=== PATIENT | female | born 1950 | race African-American/Black ===

== ENCOUNTER 2018-07-05 08:40 | Observation (INO) | payer OTHER ==
--- NOTE | 2018-07-05 09:25 | ER ---
Nurse's Notes [facility] Name: Soha Aguilar Age: 67 yrs Sex: Female : 1950 Arrival Date: 07/05/2018 Time: 08:42 Bed 16 Private MD: Diagnosis: Headache;Other chest pain;Ataxia, unspecified Presentation: 07/05 08:53 Presenting complaint: Friend states: Frontal headache, nausea, and dizziness x 1 month, hb worse over the last week. Recently completed abx for URI. Transition of care: patient was not received from another setting of care. 08:53 Method Of Arrival: Wheelchair hb 08:55 Onset of symptoms is unknown. Risk Assessment: Do you want to hurt yourself or someone hb else? Patient reports no desire to harm self or others. Care prior to arrival: None. 08:55 Acuity: CARMITA 3 hb 12:30 Initial Sepsis Screen: Does the patient meet any 2 criteria? No. Patient's initial sg sepsis screen is negative. Does the patient have a suspected source of infection? No. Patient's initial sepsis screen is negative. Triage Assessment: 09:00 Headache History: The patient has had previous headaches and this one is similar to sg previous episodes. General: Appears in no apparent distress. well groomed, well developed, well nourished. Pain: Pain currently is 10 out of 10 on a pain scale. at worst was 10 out of 10 on a pain scale. Also complains of. Historical: - Allergies: 08:55 Advil; hb 08:55 Benadryl; hb 08:55 FLU VACCINE; hb - PMHx: 08:55 Cancer, Breast; hb - PSHx: 08:55 Mastectomy, Left; hb - Immunization history:: Adult Immunizations up to date. - Social history:: Smoking status: Patient/guardian denies using tobacco. - Ebola Screening: : No symptoms or risks identified at this time. - Family history:: not pertinent. Screenin:54 Abuse screen: Denies threats or abuse. Denies injuries from another. Nutritional sg screening: No deficits noted. Tuberculosis screening: No symptoms or risk factors identified. Never had TB. Fall Risk None identified. Assessment: 09:00 General: Appears in no apparent distress. well groomed, well developed, well nourished, sg Behavior is calm, cooperative, appropriate for age, quiet. Neuro: Level of Consciousness is awake, alert, obeys commands, Oriented to person, place, time, situation, Materials Manager are equal bilaterally Moves all extremities. Full function Gait is steady, Speech is normal, Facial symmetry appears normal, Pupils are PERRLA, Reports dizziness, worsens when standing up headache in entire frontal area. Cardiovascular: Patient's skin is warm and dry. Respiratory: Airway is patent Respiratory effort is even, unlabored, Respiratory pattern is regular, symmetrical. GI: No signs and/or symptoms were reported involving the gastrointestinal system. : No signs and/or symptoms were reported regarding the genitourinary system. Derm: Skin is intact, is healthy with good turgor, Skin is dry, Skin is normal, Skin temperature is warm. 09:45 Reassessment: pt remains off the unit in Radiology at this time. sg 11:00 Reassessment: Patient appears in no apparent distress at this time. Patient and/or sg family updated on plan of care and expected duration. Pain level reassessed. Patient is alert, oriented x 3, equal unlabored respirations, skin warm/dry/pink. Patient states feeling better. 12:00 Reassessment: Patient appears in no apparent distress at this time. Patient and/or sg family updated on plan of care and expected duration. Pain level reassessed. pt family remains at bedside at this time. Vital Signs: 08:55 BP 171 / 89; Pulse 77; Resp 16; Temp 97.8; Pulse Ox 98% on R/A; Pain 5/10; hb 10:55 BP 170 / 80; Pulse 78; Resp 16; Pulse Ox 99% on R/A; Pain 3/10; sg 13:26 BP 121 / 56; Pulse 60; Resp 17; Pulse Ox 98% on R/A; Pain 0/10; sg NIH Stroke Scale Scores: 09:17 NIHSS Score: 0 arielle ED Course: 08:42 Patient arrived in ED. as 08:50 Miguel Hillman MD is Attending Physician. arielle 08:55 Triage completed. hb 08:55 Arm band placed on. hb 09:00 Patient has correct armband on for positive identification. Call light in reach. Side sg rails up X2. Pulse ox on. NIBP on. 09:12 Fabiano Deras RN is Primary Nurse. sg 09:23 Chapincito Choudhury DO is Hospitalizing Provider. arielle 09:29 X-ray completed. Portable x-ray completed in exam room. Patient tolerated procedure ml well. 09:31 XRAY Chest (1 view) In Process Unspecified. EDMS 09:32 CT completed. Patient tolerated procedure well. Patient moved to CT via wheelchair. [email or web address] Patient moved to MRI Patient moved back from CT. 09:33 CT Head Brain wo Cont In Process Unspecified. EDMS 09:49 Brain Wo Cont In Process Unspecified. EDMS 10:10 US Carotid Artery Bilateral In Process Unspecified. EDMS 10:37 EKG done, by it technical specialist. reviewed by Miguel Hillman MD. sm3 10:42 Missed attempt(s): 22 gauge in right hand. Bleeding controlled, band aid applied, dh3 catheter tip intact. 10:44 Initial lab(s) drawn, by il, sent to lab. Inserted saline lock: 20 gauge in right dh3 antecubital area, using aseptic technique. Blood collected. 12:56 No provider procedures requiring assistance completed. Patient admitted, IV remains in sg place. intact, No redness/swelling at site. Administered Medications: 10:10 Drug: NS 0.9% 500 ml Route: IV; Rate: bolus; Site: right antecubital; sg 11:40 Follow up: Response: No adverse reaction; IV Status: Completed infusion; IV Intake: sg 500ml 10:10 Drug: NS 0.9% 1000 ml Route: IV; Rate: 125 ml/hr; Site: right antecubital; sg 13:49 Follow up: IV Status: Infusion continued upon admission sg 12:20 Drug: Pepcid 20 mg Route: IVP; Site: right antecubital; sg 13:22 Follow up: Response: No adverse reaction sg 12:23 Not Given (Patient Refused; pt and pt family report an allergy to aspirin): Aspirin sg Chewable Tablet 324 mg PO once; 81 mg tablets x 4 Intake: 11:40 IV: 500ml; Total: 500ml. sg Outcome: 09:23 Decision to Hospitalize by Provider. arielle 13:45 Admitted to Med/surg accompanied by tech, family with patient, via wheelchair, room sg 204, on monitor, with chart, Report called to Bernardo ESQUEDA 13:45 Condition: stable 13:45 Instructed on the need for admit, safety practices, Demonstrated understanding of instructions. 13:49 Patient left the ED. NIH Stroke Scale - NIH Stroke Score Date: 07/05/2018 Time: 09:17 Total Score = 0 1a. Level of Consciousness (LOC) - 0(Alert) 1b. Level of Consciousness (LOC) (Year \T\ Age) - 0(Both) 1c. LOC Commands (Open \T\ Closes Eyes/Publisher Assistant) - 0(Both) 2. Best Gaze (Lateral Gaze Paresis) - 0(Normal) 3. Visual Field Loss - 0(No visual loss) 4. Facial Palsy - 0(Normal) 5a. Left Arm: Motor (10-second hold) - 0(No drift) 5b. Right Arm: Motor (10-second hold) - 0(No drift) 6a. Left Leg: Motor (5-second hold - always test supine) - 0(No drift) 6b. Right Leg: Motor (5-second hold - always test supine) - 0(No drift) 7. Limb Ataxia (finger/nose \T\ heel/dolan - test with eyes open) - 0(Absent) 8. Sensory Loss (pinprick arms/legs/face) - 0(Normal) 9. Best Language: Aphasia (description/naming/reading) - 0(No aphasia) 10. Dysarthria (speech clarity - read or repeat words) - 0(Normal) 11. Extinction and Inattention (visual/tactile/auditory/spatial/personal) - 0(No abnormality) Initials: arielle Signatures: Dispatcher [employer] Fabiano Ro RN RN sg Anderson, Corey, MD MD cha Martinez, Jana Lutz Heather, RN RN Vannesa Anderson [facility] Tiny Hsu 3 Solange [email or web address] Corrections: (The following items were deleted from the chart) 10:49 10:44 Inserted saline lock: 22 gauge in right antecubital area, using aseptic 3 technique. Blood collected. [facility]
--- NOTE | 2018-07-05 09:25 | EDPHYS ---
Physician Documentation [facility] Name: Soha Aguilar Age: 67 yrs Sex: Female : 1950 Arrival Date: 07/05/2018 Time: 08:42 Bed 16 Private MD: ED Physician Miguel Hillman HPI: 07/05 09:16 This 67 yrs old Black Female presents to ER via Wheelchair with complaints of Headache, arielle Dizziness. 09:16 The patient complains of pain to the forehead, right religion, left religion, left side of arielle forehead and right side of forehead. The patient describes the headache as a pressure. Onset: The symptoms/episode began/occurred 2 month(s) ago. Associated signs and symptoms: Pertinent positives: weakness. Severity of symptoms: At its worst the pain was mild, moderate, in the emergency department the pain is unchanged. 09:17 The patient or guardian reports chest pain that is located primarily in the anterior arielle chest wall, bilaterally. Onset: 2 month(s) ago. The patient's problem is reported as difficulty walking, weakness, walks to the left. Onset: The symptoms/episode began/occurred 2 month(s) ago. Historical: - Allergies: 08:55 Advil; hb 08:55 Benadryl; hb 08:55 FLU VACCINE; hb - PMHx: 08:55 Cancer, Breast; hb - PSHx: 08:55 Mastectomy, Left; hb - Immunization history:: Adult Immunizations up to date. - Social history:: Smoking status: Patient/guardian denies using tobacco. - Ebola Screening: : No symptoms or risks identified at this time. - Family history:: not pertinent. ROS: 09:17 Constitutional: Negative for fever, chills, and weight loss, Eyes: Negative for injury, arielle pain, redness, and discharge, ENT: Negative for injury, pain, and discharge, Neck: Negative for injury, pain, and swelling, Respiratory: Negative for shortness of breath, cough, wheezing, and pleuritic chest pain, Abdomen/GI: Negative for abdominal pain, nausea, vomiting, diarrhea, and constipation, Back: Negative for injury and pain, : Negative for injury, bleeding, discharge, and swelling, Skin: Negative for injury, rash, and discoloration, Psych: Negative for depression, anxiety, suicide ideation, homicidal ideation, and hallucinations, Allergy/Immunology: Negative for hives, rash, and allergies, Endocrine: Negative for neck swelling, polydipsia, polyuria, polyphagia, and marked weight changes, Hematologic/Lymphatic: Negative for swollen nodes, abnormal bleeding, and unusual bruising. 09:17 Cardiovascular: Positive for chest pain. 09:17 MS/extremity: Positive for pain, of the right arm. 09:17 Neuro: Positive for gait disturbance, headache, weakness, walks to the left. Exam: 09:17 Constitutional: This is a well developed, well nourished patient who is awake, alert, arielle and in no acute distress. Head/Face: Normocephalic, atraumatic. Eyes: Pupils equal round and reactive to light, extra-ocular motions intact. Lids and lashes normal. Conjunctiva and sclera are non-icteric and not injected. Cornea within normal limits. Periorbital areas with no swelling, redness, or edema. ENT: Nares patent. No nasal discharge, no septal abnormalities noted. Tympanic membranes are normal and external auditory canals are clear. Oropharynx with no redness, swelling, or masses, exudates, or evidence of obstruction, uvula midline. Mucous membranes moist. Neck: Trachea midline, no thyromegaly or masses palpated, and no cervical lymphadenopathy. Supple, full range of motion without nuchal rigidity, or vertebral point tenderness. No Meningismus. Chest/axilla: Normal chest wall appearance and motion. Nontender with no deformity. No lesions are appreciated. Cardiovascular: Regular rate and rhythm with a normal S1 and S2. No gallops, murmurs, or rubs. Normal PMI, no JVD. No pulse deficits. Respiratory: Lungs have equal breath sounds bilaterally, clear to auscultation and percussion. No rales, rhonchi or wheezes noted. No increased work of breathing, no retractions or nasal flaring. Abdomen/GI: Soft, non-tender, with normal bowel sounds. No distension or tympany. No guarding or rebound. No evidence of tenderness throughout. Back: No spinal tenderness. No costovertebral tenderness. Full range of motion. Female : Normal external genitalia. Skin: Warm, dry with normal turgor. Normal color with no rashes, no lesions, and no evidence of cellulitis. MS/ Extremity: Pulses equal, no cyanosis. Neurovascular intact. Full, normal range of motion. Neuro: Awake and alert, GCS 15, oriented to person, place, time, and situation. Cranial nerves II-XII grossly intact. Motor strength 5/5 in all extremities. Sensory grossly intact. Cerebellar exam normal. Normal gait. Psych: Awake, alert, with orientation to person, place and time. Behavior, mood, and affect are within normal limits. 09:20 Radiologist reports: see report [facility] Vital Signs: 08:55 BP 171 / 89; Pulse 77; Resp 16; Temp 97.8; Pulse Ox 98% on R/A; Pain 5/10; hb 10:55 BP 170 / 80; Pulse 78; Resp 16; Pulse Ox 99% on R/A; Pain 3/10; sg 13:26 BP 121 / 56; Pulse 60; Resp 17; Pulse Ox 98% on R/A; Pain 0/10; sg NIH Stroke Scale Scores: 09:17 NIHSS Score: 0 arielle MDM: 08:50 Patient medically screened. [facility] 09:21 Data reviewed: vital signs, nurses notes, lab test result(s), EKG, radiologic studies, [facility] CT scan, doppler, MRI, plain films. 03 09:15 Order name: Basic Metabolic Panel; Complete Time: 12:59 [facility] 07/05 09:15 Order name: CBC with Diff; Complete Time: 11:46 [facility] 07/05 09:15 Order name: LFT's; Complete Time: 12:59 [facility] 07/05 09:15 Order name: Magnesium; Complete Time: 12:59 [facility] 07/05 09:15 Order name: NT PRO-BNP; Complete Time: 12:59 [facility] 07/05 09:15 Order name: PT-INR; Complete Time: 11:46 [facility] 07/05 09:15 Order name: Troponin (emerg Dept Use Only); Complete Time: 12:59 [facility] 07/05 09:15 Order name: XRAY Chest (1 view); Complete Time: 11:46 [facility] 07/05 09:15 Order name: Lipase; Complete Time: 12:59 [facility] 07/05 09:15 Order name: CT Head Brain wo Cont; Complete Time: 11:46 [facility] 07/05 09:15 Order name: US Carotid Artery Bilateral; Complete Time: 11:46 [facility] 07/05 09:15 Order name: Urine Culture [facility] 07/05 09:49 Order name: Brain Wo Cont; Complete Time: 11:46 EDMS 07/05 09:15 Order name: EKG; Complete Time: 09:16 [facility] 07/05 09:15 Order name: Cardiac monitoring; Complete Time: 09:45 [facility] 07/05 09:15 Order name: EKG - Nurse/Tech; Complete Time: 10:49 [facility] 07/05 09:15 Order name: IV Saline Lock; Complete Time: 09:45 [facility] 07/05 09:15 Order name: Labs collected and sent; Complete Time: 09:45 [facility] 07/05 09:15 Order name: O2 Per Protocol; Complete Time: 09:45 [facility] 07/05 09:15 Order name: O2 Sat Monitoring; Complete Time: 09:45 [facility] 07/05 11:00 Order name: Labs - recollect needed; Complete Time: 12:08 07/05 13:40 Order name: Diet Heart Healthy; Complete Time: 13:40 sg Administered Medications: 10:10 Drug: NS 0.9% 500 ml Route: IV; Rate: bolus; Site: right antecubital; sg 11:40 Follow up: Response: No adverse reaction; IV Status: Completed infusion; IV Intake: sg 500ml 10:10 Drug: NS 0.9% 1000 ml Route: IV; Rate: 125 ml/hr; Site: right antecubital; sg 13:49 Follow up: IV Status: Infusion continued upon admission sg 12:20 Drug: Pepcid 20 mg Route: IVP; Site: right antecubital; sg 13:22 Follow up: Response: No adverse reaction sg 12:23 Not Given (Patient Refused; pt and pt family report an allergy to aspirin): Aspirin sg Chewable Tablet 324 mg PO once; 81 mg tablets x 4 Disposition: 07/05/18 09:23 Hospitalization ordered by Chapincito Choudhury for Observation. Preliminary diagnosis are Headache, Other chest pain, Ataxia, unspecified. - Bed requested for Telemetry/MedSurg (observation). - Status is Observation. sg - Condition is Stable. - Problem is new. - Symptoms have improved. UTI on Admission? No NIH Stroke Scale - NIH Stroke Score Date: 07/05/2018 Time: 09:17 Total Score = 0 1a. Level of Consciousness (LOC) - 0(Alert) 1b. Level of Consciousness (LOC) (Year \T\ Age) - 0(Both) 1c. LOC Commands (Open \T\ Closes Eyes/Director Of Grants) - 0(Both) 2. Best Gaze (Lateral Gaze Paresis) - 0(Normal) 3. Visual Field Loss - 0(No visual loss) 4. Facial Palsy - 0(Normal) 5a. Left Arm: Motor (10-second hold) - 0(No drift) 5b. Right Arm: Motor (10-second hold) - 0(No drift) 6a. Left Leg: Motor (5-second hold - always test supine) - 0(No drift) 6b. Right Leg: Motor (5-second hold - always test supine) - 0(No drift) 7. Limb Ataxia (finger/nose \T\ heel/dolan - test with eyes open) - 0(Absent) 8. Sensory Loss (pinprick arms/legs/face) - 0(Normal) 9. Best Language: Aphasia (description/naming/reading) - 0(No aphasia) 10. Dysarthria (speech clarity - read or repeat words) - 0(Normal) 11. Extinction and Inattention (visual/tactile/auditory/spatial/personal) - 0(No abnormality) Initials: arielle Signatures: Dispatcher [employer] EDOR Mona Thomas Diana, RN RN dw Gay, Steven, RN RN sg Anderson, Corey, MD MD cha Baxter, Heather, RN RN Corrections: (The following items were deleted from the chart) 09:49 09:17 MR STROKE PROTOCOL+MRI.RAD.BRZ ordered. EDOR EDOR 12:44 09:23 Hospitalization Ordered by Chapincito Choudhury DO for Observation. Preliminary diagnosis is Headache; Other chest pain; Ataxia, unspecified. Bed requested for Telemetry/MedSurg (observation). Status is Observation. Condition is Stable. Problem is new. Symptoms have improved. UTI on Admission? No. [facility] 13:49 12:44 07/05/2018 09:23 Hospitalization Ordered by Chapincito Choudhury DO for sg Observation. Preliminary diagnosis is Headache; Other chest pain; Ataxia, unspecified. Bed requested for Telemetry/MedSurg (observation). Status is Observation. Condition is Stable. Problem is new. Symptoms have improved. UTI on Admission? No. dw
[2018-07-05] MEDS ORDERED: NA CHLORIDE 0.9% 1,000 ML ONE (09:42)
--- NOTE | 2018-07-05 09:46 | RAD REPORT ---
EXAM DESCRIPTION: [place] Single View07/05/2018 9:31 am CLINICAL HISTORY: Chest pain COMPARISON: 2014 FINDINGS: The lungs appear clear of acute infiltrate. The heart is normal size IMPRESSION: No acute abnormalities displayed
--- NOTE | 2018-07-05 09:48 | RAD REPORT ---
EXAM DESCRIPTION: CT - Head Brain Wo Cont - 07/05/2018 9:36 am CLINICAL HISTORY: Headache COMPARISON: 2014 TECHNIQUE: Computed axial tomography of the head was obtained. IV contrast was not requested. All CT scans are performed using dose optimization technique as appropriate and may include automated exposure control or mA/KV adjustment according to patient size. FINDINGS: An intracranial bleed is not seen . The ventricles are normal in caliber. No extra-axial fluid collection is noted. Fluid within the sinuses/ mastoids is not seen. IMPRESSION: No acute intracranial abnormality is seen. If patient's symptoms persist MRI of the bra in would be recommended.
--- NOTE | 2018-07-05 10:27 | RAD REPORT ---
EXAM DESCRIPTION: MRI - Brain Wo Cont - 07/05/2018 10:11 am CLINICAL HISTORY: Dizziness COMPARISON: July 05, [address] TECHNIQUE: Axial, sagittal, and coronal magnetic images of the brain were obtained. Contrast was not requested FINDINGS: No abnormal signal is present within the brain. Diffusion-weighted/ADC mapping does not reveal evidence of acute infarction. The ventricles are normal caliber. An extra-axial fluid collection is not present The sinuses and mastoids are clear. IMPRESSION: Unremarkable unenhanced brain MRI
--- NOTE | 2018-07-05 11:00 | RAD REPORT ---
EXAM DESCRIPTION: USCarotid Artery Bilateral07/05/2018 10:16 am CLINICAL HISTORY: Syncope with COMPARISON: None FINDINGS: The velocity of the right internal carotid artery equals 181 cm/sec. The right ICA/CCA rat io 1.5. The internal carotid artery is tortuous. The velocity of the left internal carotid artery equals 97 cm/sec. The left ICA/CCA ratio 1 No plaque is seen within the carotid arteries. The vertebral arteries demonstrate antegrade flow IMPRESSION: Torturous right internal carotid artery. Otherwise unremarkable exam NASCET criteria used. Mild 0-49% stenosis Moderate 50-69% stenosis Severe 70-99% stenosis
[2018-07-05 11:05] LABS: Protime INR 1.17
[2018-07-05 11:28] LABS: Absolute Lymphocytes (CBC) 1.9 K/uL (0.7-4.9); Absolute Monocytes 0.5 K/uL (0.1-1.3); Absolute Neutrophil 2.6 K/uL (1.8-8.0); Basophils % 0.8 % (0-1.3); Eosinophils % 2.2 % (0-4.4); Hematocrit 38.4 % (36.0-45.0); Lymphocytes % 36.4 % (15.3-44.8); MPV 9.6 fL (7.6-11.3); Monocytes % 10.5 % (3.3-12.3); RBC Red Blood Cell Count 4.72 M/uL (3.86-4.86)
[2018-07-05] MEDS ORDERED: FAMOTIDINE 20 MG/2 ML VIAL IV ONE (12:05)
[2018-07-05] MEDS ORDERED: ASPIRIN 81 MG CHEWABLE TABLET ONE (12:05)
--- NOTE | 2018-07-05 12:15 | EKG ---
Test Date: 2018-07-05 Test Time: 10:26:02 Canvas Baster Jumpbasting: ROLF MEASUREMENT RESULTS: Intervals: Rate: 61 IA: 230 QRSD: 86 QT: 392 QTc: 394 [place]: P: 55 IA: 230 QRS: 31 T: 50 INTERPRETIVE STATEMENTS: Sinus rhythm with 1st degree AV block Nonspecific T wave abnormality Abnormal ECG Compared to ECG 01/30/2013 19:50:20 First degree AV block now present T-wave abnormality now present Electronically Signed On 07-05-18 12:14:20 CDT by Jose Rae
[2018-07-05 12:24] LABS: ALT/SGPT 18 U/L (12-78); AST/SGOT 15 U/L (15-37); Albumin 3.3 g/dL (3.4-5.0); Alkaline Phosphatase 51 U/L (45-117); BUN Blood Urea Nitrogen 19 mg/dL (7-18); Bicarbonate 31 mmol/L (21-32); Bilirubin Direct < 0.1 mg/dL (0-0.2); Bilirubin Total 0.3 mg/dL (0.2-1.0); Glucose Level 97 mg/dL (74-106); Lipase 73 U/L (73-393); Magnesium 2.1 mg/dL (1.8-2.4); NT PRO-BNP 35 pg/mL (<125); Potassium 3.8 mmol/L (3.5-5.1); Protein, Total 8.2 g/dL (6.4-8.2); Sodium Level 141 mmol/L (136-145); Troponin (Emerg Dept Use Only) < 0.02 ng/mL (0.0-0.045)
[2018-07-05] MEDS ORDERED: TRAMADOL HCL 50 MG TAB PO PRN (14:08)
[2018-07-05] MEDS ORDERED: ACETAMINOPHEN 500 MG TAB PO PRN (14:08)
[2018-07-05] MEDS ORDERED: NITROGLYCERIN 0.4 MG/TAB SL PRN (14:08)
[2018-07-05] MEDS ORDERED: ONDANSETRON 4 MG/2 ML VIAL IV PRN (14:08)
[2018-07-05] MEDS ORDERED: MORPHINE 2 MG/ML SYR IV PRN (14:08)
[2018-07-05] MEDS: NA CHLORIDE 0.9% 1,000 ML IV SCH ×2 (15:17→23:52)
[2018-07-05 15:37] LABS: CKMB Creatine Kinase MB < 1.0 ng/mL (0.3-3.6); Troponin I < 0.02 ng/mL (0.0-0.045)
--- NOTE | 2018-07-05 16:08 | P.HP ---
Certification for Inpatient Patient admitted to: Observation With expected LOS: <2 Midnights Patient will require the following post-hospital care: None Practitioner: I am a practitioner with admitting privileges, knowledge of patient current condition, hospital course, and medical plan of care. Services: Services provided to patient in accordance with Admission requirements found in Title 42 Section 412.3 of the Code of Federal Regulations Patient History Date of Service: 07/05/18 Primary Care Provider: None Reason for admission: Chest pain, headache History of Present Illness: 67-year-old female presented to the emergency room with chest pain and frontal headache. Patient reports frontal headache over the last month. It has been associated with some nausea, vomiting illness. She went to a local PCP and she was given antibiotic therapy for this. Her condition is not improved. Patient also reports chest pain over the last 2 weeks. Chest pain is nonspecific. Pain radiates to the left side. She reports pain with defecation. Patient reports come constipation. Patient also reports history of hypertension. She used to take medication but has not taking medication in quite some time. In the ER patient evaluated. Initial blood pressures were elevated. Initial MRI brain, carotid Doppler, chest x-ray, and CT head all unremarkable. Electrolytes also unremarkable. Patient was admitted for further evaluation and treatment. Allergies diphenhydramine [From Benadryl] Allergy (Intermediate, Verified 07/05/18 14:08) Unknown ibuprofen Allergy (Intermediate, Verified 07/05/18 14:08) Unknown flu vaccine Allergy (Intermediate, Uncoded 07/05/18 14:08) Unknown Home Medications: NK [No Home Meds] 07/05/18 - Past Medical/Surgical History Has patient received pneumonia vaccine in the past: Yes Diabetic: No -: History breast cancer -: Hypertension -: left mastectomy Psychosocial/ Personal History: Patient is . She has 2 children. She works as a expressive music therapist - Family History Father -: Cancer (Throat cancer), Other (see notes) (Alcoholic) - Social History Smoking Status: Never smoker Alcohol use: No CD- Drugs: No Caffeine use: Yes Place of Residence: Home Review of Systems General: Weakness, As per HPI Eyes: Unremarkable ENT: As per HPI Respiratory: Unremarkable Cardiovascular: Chest Pain, Light Headedness, As per HPI Gastrointestinal: Nausea, Vomiting, Diarrhea, Constipation Genitourinary: Unremarkable Musculoskeletal: Unremarkable Integumentary: Unremarkable Neurological: As per HPI Lymphatics: Unremarkable Physical Examination - Vital Signs Temperature: 97.8 F Blood Pressure: 121/56 Pulse: 60 Respirations: 17 - Physical Exam General: Alert, In no apparent distress, Oriented x3, Cooperative HEENT: Atraumatic, Normocephalic, PERRLA, Mucous membr. moist/pink, EOMI Neck: Supple, No Thyromegaly Respiratory: Clear to auscultation bilaterally, Normal air movement Cardiovascular: Normal pulses, Regular rate/rhythm Gastrointestinal: Normal bowel sounds, Soft and benign, Non-distended, No tenderness, No masses, No rebound, No guarding Musculoskeletal: No contractures, No erythema, No tenderness, No warmth Integumentary: No tenderness/swelling, No erythema, No warmth, No cyanosis Neurological: Normal speech, Normal strength at 5/5 x4 extr, Normal tone, Normal affect - Studies Laboratory Data (last 24 hrs) 07/05/18 11:40: Sodium 141, Potassium 3.8, BUN 19 H, Creatinine 0.91, Glucose 97 , Magnesium 2.1, Total Bilirubin 0.3, AST 15, ALT 18, Alkaline Phosphatase 51, Lipase 73 07/05/18 10:44: PT 13.7 H, INR 1.17 07/05/18 10:44: WBC 5.2, Hgb 12.1, Hct 38.4, Plt Count 222 Assessment and Plan - Plan Impression: Chest pain with headache likely related to uncontrolled hypertension History of breast cancer and left breast mastectomy Plan: Chest pain with headache likely related to uncontrolled hypertension: Blood pressure elevated. Will start Norvasc 5 mg daily. Will monitor cardiac enzymes. Will obtain echocardiogram. Will consult cardiology for further recommendation. Anticipate discharge tomorrow if much improved. Patient will likely require blood pressure medication at discharge. History of breast cancer and left breast mastectomy: Stable. Discharge Plan: Home Plan to discharge in: 24 Hours - Advance Directives Does patient have a Living Will: No Does patient have a Durable POA for Healthcare: No - Code Status/Comfort Care Code Status Assessed: Yes (Patient full code.) Time Spent Managing Pts Care (In Minutes): 55
[2018-07-05] MEDS: AMLODIPINE 5 MG TAB PO SCH (17:49)
[2018-07-05] MEDS ORDERED: HYDRALAZINE HCL 20 MG/ML VIAL IV PRN (17:51)
[2018-07-05] MEDS: FAMOTIDINE 20 MG TAB PO SCH (20:37)
[2018-07-05] MEDS ORDERED: HYDRALAZINE HCL 20 MG/ML VIAL IV SCH (21:00)
[2018-07-05] MEDS ORDERED: POTASSIUM CL SA 10 MEQ TAB PO ONE (21:00)
[2018-07-05] MEDS: FLUTICASONE 50MCG NASAL SPRAY NAS SCH (22:05)
--- NOTE | 2018-07-05 22:09 | CON ---
History Of Present Illness: Mrs. Aguilar is 67. She presented to the emergency room with a variety of complaints. It is really not clear what order they occurred in or which bothered her most or which w as the chief complaint. She was unable to walk straight. She always veered to the left when walking . She had a frontal headache. She had chest pain, abdominal pain, joint pain, muscular pain in the back and legs. The patient was unable to describe anything that would make the chest pain happen or anything that would make it go away. While still in the emergency room, she had a carotid artery ult rasound, which showed tortuosity of the right internal carotid artery, no stenosis, normal vertebral artery flow. Brain MRI was done, which showed everything was normal. An electrocardiogram shows sin us rhythm, first degree AV block, nonspecific T-wave abnormality. CAT scan of the head has shown no fluid within the sinuses or mastoids, everything looked normal. Her laboratory exam showed normal en zymes at least twice, normal blood sugar, normal BUN and creatinine, normal thyroid functions. Mrs. Aguilar has never had myocardial infarction, stroke, or diabetes. She has never used tobacco. Alcohol use minimal to none. No illegal drugs. She has had a left mastectomy for cancer before. She is not aware of being told she had a heart murmur. Physical Examination: General: She is 5 feet 6 inches, 200 pounds. HEENT: Normal. Lungs: Clear. Cardiac: Normal. Abdomen: Soft. Extremities: Normal. No cyanosis, clubbing, or edema. Impression: The patient's chest pain does not seem to be clearly related to anything. I am not sure what to make of the symptoms, but she is at an age where we have to consider the possibility of CAD likely, so she will undergo nuclear stress test and echo tomorrow. She does have a heart murmur. It is a systolic murmur, crescendo decrescendo. I suspect she has aortic sclerosis, but I doubt if she has significant aortic stenosis. So an echo will be done in addition. AMENA/DEMI Voice ID: [id number] Report ID: [id number]
[2018-07-06 00:21] LABS: Urine Appearance CLEAR; Urine Bilirubin NEGATIVE (NEG); Urine Blood NEGATIVE (NEG); Urine Color YELLOW; Urine Glucose NEGATIVE (NEG); Urine Protein NEGATIVE (NEG); Urine Specific Gravity 1.015 (1.005-1.030); Urine Urobilinogen 0.2 mg/dL (0.2-1.0)
[2018-07-06 00:27] LABS: Urine Microscopic Reflex NO UMIC
[2018-07-06] MEDS ORDERED: REGADENOSON 0.4 MG/5 ML SYR IV ONE (08:03)
[2018-07-06] MEDS ORDERED: ASPIRIN EC 81 MG TAB PO SCH (09:00)
[2018-07-06] MEDS ORDERED: ENOXAPARIN 40 MG/0.4 ML SQ SCH (09:00)
[2018-07-06] MEDS: NA CHLORIDE 0.9% 1,000 ML IV SCH (10:08)
--- NOTE | 2018-07-06 10:50 | RAD REPORT ---
EXAM DESCRIPTION: NM - Rest Stress Cardiac Imaging - 07/06/2018 10:37 am CLINICAL HISTORY: CHEST PAIN, HTN Chest pain. COMPARISON: No comparisons TECHNIQUE: The patient was administered approximately 10mCi of Tc 99m Sestamibi prior to resting SPE CT imaging of the heart. The patient was then administered approximately 30 mCi of Tc 99m Sestamibi f ollowing exercise or pharmacologic stress. Multiplanar SPECT images were reviewed. FINDINGS: No stress induced ischemic defect is seen to suggest stress induced ischemia. Diminished r adiopharmaceutical accumulation along the inferior wall with both rest and stress imaging noted proba luis m related to diaphragmatic attenuation artifact. The end diastolic volume is 115 ml, the end systolic volume is 40 ml, and the ejection fraction is 65 %. IMPRESSION: No stress induced ischemia.
[2018-07-06] MEDS: AMLODIPINE 5 MG TAB PO SCH (11:47)
[2018-07-06] MEDS: FAMOTIDINE 20 MG TAB PO SCH (11:48)
[2018-07-06] MEDS: FLUTICASONE 50MCG NASAL SPRAY NAS SCH (11:48)
--- NOTE | 2018-07-06 12:34 | P.DS ---
Admission Date: 07/05/18 Discharge Date: 07/06/18 Primary Care Provider: None Disposition: ROUTINE DISCHARGE Discharge Condition: GOOD Reason for Admission: Chest pain, headache Consultations: Cardiology-Dr. Rae Procedures: Cardiac stress test: FINDINGS: No stress induced ischemic defect is seen to suggest stress induced ischemia. Diminished radiopharmaceutical accumulation along the inferior wall with both rest and stress imaging noted probably related to diaphragmatic attenuation artifact. The end diastolic volume is 115 ml, the end systolic volume is 40 ml, and the ejection fraction is 65 %. IMPRESSION: No stress induced ischemia. CT head: FINDINGS: An intracranial bleed is not seen . The ventricles are normal in caliber. No extra-axial fluid collection is noted. Fluid within the sinuses/ mastoids is not seen. IMPRESSION: No acute intracranial abnormality is seen. MRI brain: FINDINGS: No abnormal signal is present within the brain. Diffusion-weighted/ADC mapping does not reveal evidence of acute infarction. The ventricles are normal caliber. An extra-axial fluid collection is not present The sinuses and mastoids are clear. IMPRESSION: Unremarkable unenhanced brain MRI Carotid Doppler: FINDINGS: The velocity of the right internal carotid artery equals 181 cm/sec. The right ICA/CCA ratio 1.5. The internal carotid artery is tortuous. The velocity of the left internal carotid artery equals 97 cm/sec. The left ICA/ CCA ratio 1 No plaque is seen within the carotid arteries. The vertebral arteries demonstrate antegrade flow IMPRESSION: Torturous right internal carotid artery. Otherwise unremarkable exam Medical Problem List: Chest pain with headache likely related to uncontrolled hypertension History of breast cancer and left breast mastectomy Brief History of Present Illness: 67-year-old female presented to the emergency room with chest pain and frontal headache. Patient reports frontal headache over the last month. It has been associated with some nausea, vomiting illness. She went to a local PCP and she was given antibiotic therapy for this. Her condition is not improved. Patient also reports chest pain over the last 2 weeks. Chest pain is nonspecific. Pain radiates to the left side. She reports pain with defecation. Patient reports come constipation. Patient also reports history of hypertension. She used to take medication but has not taking medication in quite some time. In the ER patient evaluated. Initial blood pressures were elevated. Initial MRI brain, carotid Doppler, chest x-ray, and CT head all unremarkable. Electrolytes also unremarkable. Patient was admitted for further evaluation and treatment. Hospital Course: Patient presented with chest pain and headache. Patient had extensive workup including CT head, MRI brain, carotid Doppler all within normal range. Cardiac enzymes unremarkable. Patient seen and evaluated by Cardiology. Cardiac stress test showed no stress-induced ischemia. Patient with history of hypertension but had not been taking medication. Medication was started. Blood pressure improved. At discharge no further cardiac intervention was required. Patient may continue with aspirin 81 mg daily along with Norvasc 5 mg daily. She is to monitor blood pressures closely. Recommend for blood pressures at 150/80. Further adjustment can be done by her PCP. Patient with history of breast cancer and left breast mastectomy. Patient may follow up with her PCP to further monitor. Vital Signs/Physical Exam: Temp Pulse Resp BP Pulse Ox 97.1 F 63 16 152/70 H 94 07/06/18 08:00 07/06/18 11:47 07/06/18 08:00 07/06/18 11:47 07/06/18 08:00 General: Alert, In no apparent distress, Oriented x3, Cooperative HEENT: Atraumatic Neck: Supple Respiratory: Clear to auscultation bilaterally, Normal air movement Cardiovascular: Normal pulses, Regular rate/rhythm Gastrointestinal: Normal bowel sounds, Soft and benign, Non-distended, No tenderness, No masses, No rebound, No guarding Musculoskeletal: No erythema, No tenderness, No warmth Integumentary: No tenderness/swelling, No erythema, No warmth, No cyanosis Neurological: Normal speech, Normal strength at 5/5 x4 extr, Normal tone, Normal affect Laboratory Data at Discharge: WBC 5.2 K/uL (4.3-10.9) 07/05/18 10:44 Hgb 12.1 g/dL (12.0-15.0) 07/05/18 10:44 Hct 38.4 % (36.0-45.0) 07/05/18 10:44 Plt Count 222 K/uL (152-406) 07/05/18 10:44 PT 13.7 SECONDS (9.5-12.5) H 07/05/18 10:44 INR 1.17 07/05/18 10:44 Sodium 141 mmol/L (136-145) 07/05/18 11:40 Potassium 3.8 mmol/L (3.5-5.1) 07/05/18 11:40 BUN 19 mg/dL (7-18) H 07/05/18 11:40 Creatinine 0.91 mg/dL (0.55-1.3) 07/05/18 11:40 Glucose 97 mg/dL (74-106) 07/05/18 11:40 Magnesium 2.1 mg/dL (1.8-2.4) 07/05/18 11:40 Total Bilirubin 0.3 mg/dL (0.2-1.0) 07/05/18 11:40 AST 15 U/L (15-37) 07/05/18 11:40 ALT 18 U/L (12-78) 07/05/18 11:40 Alkaline Phosphatase 51 U/L (45-117) 07/05/18 11:40 Troponin I < 0.02 ng/mL (0.0-0.045) 07/05/18 14:55 Lipase 73 U/L (73-393) 07/05/18 11:40 Home Medications: Amlodipine [Norvasc*] 5 mg PO DAILY #30 tab 07/06/18 Aspirin [Aspirin EC 81 MG] 81 mg PO DAILY #90 tablet. 07/06/18 New Medications: Amlodipine [Norvasc*] 5 mg PO DAILY #30 tab Aspirin [Aspirin EC 81 MG] 81 mg PO DAILY #90 tablet. Patient Discharge Instructions: 1. Patient to establish care with a PCP to follow up this hospitalization. 2. Patient presented with chest pain and headache. Patient had extensive workup including CT head, MRI brain, carotid Doppler all within normal range. Cardiac enzymes unremarkable. Patient seen and evaluated by Cardiology. Cardiac stress test showed no stress-induced ischemia. Patient with history of hypertension but had not been taking medication. Medication was started. Blood pressure improved. At discharge no further cardiac intervention was required. Patient may continue with aspirin 81 mg daily along with Norvasc 5 mg daily. She is to monitor blood pressures closely. Recommend for blood pressures at 150/80. Further adjustment can be done by her PCP. 3. Patient with history of breast cancer and left breast mastectomy. Patient may follow up with her PCP to further monitor. Diet: AHA Activity: Ad josh Time spent managing pt's care (in minutes): 55
--- NOTE | 2018-07-06 16:08 | ECHO ---
HEIGHT: 5 ft 6 in WEIGHT: 200 lb 0 oz DATE OF STUDY: 07/06/[address]: Chapincito Choudhury DO 2-DIMENSIONAL: YES M.MODE: YES DOPPLER: YES COLOR FLOW: YES TDS: YES PORTABLE: NO DEFINITY: NO BUBBLE STUDY: NO DIAGNOSIS: CHEST PAIN CARDIAC HISTORY: CATHERIZATION: NO SURGERY: NO PROSTHETIC VALVE: NO PACEMAKER: NO MEASUREMENTS (cm) DIASTOLIC (NORMALS) SYSTOLIC (NORMALS) IVSd 1.2 (0.6-1.2) LA Diam 4.1 (1.9-4.0) LVEF 60% LVIDd 4.0 (3.5-5.7) LVIDs 2.8 (2.0-3.5) %FS 32% LVPWd 1.4 (0.6-1.2) Ao Diam 2.3 (2.0-3.7) 2 DIMENSIONAL ASSESSMENT: RIGHT ATRIUM: NORMAL LEFT ATRIUM: DILATED RIGHT VENTRICLE: NORMAL LEFT VENTRICLE: LEFT VENTRICULAR HYPERTROPHY TRICUSPID VALVE: NORMAL MITRAL VALVE: NORMAL PULMONIC VALVE: NORMAL AORTIC VALVE: SCLEROSIS PERICARDIAL EFFUSION: NONE AORTIC ROOT: NORMAL LEFT VENTRICULAR WALL MOTION: NORMAL. DOPPLER/COLOR FLOW: MILD TRICUSPID REGURGITATION. COMMENTS: MILD TRICUSPID REGURGITATION. AORTIC SCLEROSIS. LEFT VENTRICULAR HYPERTROPHY. LEFT ATRIAL ENLARGEMENT. NORMAL LEFT VENTRICULAR FUNCTION. TECHNOLOGIST: KAYODE HARTMAN
--- NOTE | 2018-07-06 16:11 | TREADPHA ---
DX: CHEST PAIN, HYPERTENSION Date of Study: 07/06/2018 Ht: 5 6 Wt: 200 lb 0 oz Consulting Physician: DIMA MEDICATIONS: TYLENOL, ASPIRIN, APRESOLINE, LOVENOX, NORVASC HISTORY: 67 YEAR OLD FEMALE HERE FOR CHEST PAIN AND HYPERTENSION. HISTORY OF PREVIOUS HYPERTENSION. PHYSICIAL EXAMINATION: RESTING B.P.: 144/83 RESTING H.R.: 66 RESTING EKG: NORMAL PROTOCOL: LEXISCAN EXERCISE TIME: 3:30 B.P. AT PEAK STRESS: 139/102 IMPRESSION: LEXISCAN STRESS TEST PERFORMED. CARDIOLITE INJECTED PER PROTOCOL. NO ARRHYTHMIAS NOTED. DENIES ANY PAIN. SEE NUCLEAR MEDICINE REPORT.
--- NOTE | 2018-07-07 06:38 | CON ---
Date of Consultation: 07/06/2018 The patient was admitted to Dr. Choudhury on 07/05/2018. I saw the patient on 07/06/2018. Reason For Consultation: Chest pain. History Of Present Illness: Ms. Aguilar is a 67-year-old woman, who really has no previous cardiac hist ory. She came in with chest pain that is sharp, stabbing, recurrent, nonexertional. No radiation. She also has hypertension, headache and dizziness. Denied PND, orthopnea, pedal edema, palpitations, or syncope. Past Medical History: Include breast cancer. Allergies: SHE IS ALLERGIC TO BENADRYL AND IBUPROFEN. Review of Systems: Negative. Social History: Negative. Family History: Negative. Medications: At home are none. Physical Examination: General: In no acute distress. Vital signs: Blood pressure is 170/80. HEENT: Negative. Neck: Supple. There is no bruit. Chest: Clear. Cardiac: Reveals regular rhythm and rate. No murmurs, gallops, or rubs. Abdomen: Benign. Extremities: Revealed no clubbing, cyanosis, or edema. Diagnostic Data: Normal labs. Normal EKG, x-ray, CT of the head, carotid shows some tortuosity with mild plaquing. Impression And Plan: Atypical chest pain with hypertension, headache, and dizziness, but I believe I think related to hypertension. She needs her blood pressure controlled. She does not take any bloo d pressure medication. She is certainly a candidate for GILLES inhibitors or ARB or even a diuretic. A n echocardiogram and a Lexiscan are pending. We will see what these shows before making final decisi ons. GUSTAVO/DEMI Voice ID: [id number] Report ID: [id number]
== END 2018-07-06 16:50 | disposition home or self-care (01) ==
LOC: ER 08:40 → ERHOLD 12:30 → 2ND 13:39
PROVIDERS: ADMIT Family Medicine; ATTEND Family Medicine
DX: R07.9 Chest pain, unspecified (principal); R51 Headache; Z85.3 Personal history of malignant neoplasm of breast; Z88.7 Allergy status to serum and vaccine
CPT/HCPCS: 36415; 70450; 70551; 71045; 78452; 80048; 80076; 81003; 82550; 82553; 83690; 83735; 83880; 84439; 84443; 84484; 85025; 85610; 87086; 87088; 93005; 93017; 93306; 93880; 96361; 96374; 99285; A9500; G0378; J1650; J2785; J7030